=== PATIENT | female | born 1995 | race African-American/Black ===

== ENCOUNTER 2018-07-15 05:30 | Inpatient (IN) | payer OTHER ==
[2018-07-15] MEDS: Lactated Ringer's 1,000 ML IV SCH ×3 (07:30→11:20)
[2018-07-15] MEDS ORDERED: HYDROcodone/Acetaminophen 5/325 mg Tablet PO PRN ×3 (07:34→13:53)
[2018-07-15] MEDS ORDERED: Misoprostol 200 MCG TAB PR PRN (07:34)
[2018-07-15] MEDS ORDERED: Methylergonovine 0.2 MG/ML VIAL IM PRN (07:34)
[2018-07-15] MEDS ORDERED: NS w/ Oxytocin 10 units 500 ML IV SCH ×2 (07:34)
[2018-07-15] MEDS ORDERED: Carboprost 250 MCG/ML AMP IM PRN (07:34)
[2018-07-15] MEDS ORDERED: Ondansetron PF 4 MG/2 ML Vial IVP PRN ×2 (07:34→13:53)
[2018-07-15] MEDS ORDERED: Diphenoxylate HCl/Atropine Tablet PO PRN (07:34)
[2018-07-15] MEDS ORDERED: Ibuprofen 800 MG TAB PO PRN (07:34)
[2018-07-15] MEDS ORDERED: Lidocaine 1% (PF) 30 ML VIAL SC PRN (07:34)
[2018-07-15] MEDS ORDERED: NS / Oxytocin 40 units/1000ml 1,000 ML IV PRN (07:34)
[2018-07-15] MEDS ORDERED: Butorphanol Tartrate 1 MG/ML VIAL SLOW IVP PRN (07:34)
[2018-07-15 07:47] VITALS: BMI 23.0
[2018-07-15] MEDS ORDERED: Penicillin G Potassium 5 MILL.UNITS in Sodium Chloride 0.9% 100 ML IVPB SCH (08:00)
[2018-07-15 08:14] LABS: Hemoglobin 11.8 g/dL (12.0-16.0); Mean Corpuscular HGB CONC 32.7 g/dL (32.0-36.0); Mean Corpuscular Hemoglobin 30.4 pg (27.0-31.0); Mean Corpuscular Volume 93.1 fL (78.0-98.0); Mean Platelet Volume 8.4 fL (7.4-10.4); Platelet Count 125 thou/uL (130-400); RBC Distribution Width 15.4 % (11.5-14.5); Red Blood Cell (RBC) Count 3.87 mill/uL (4.20-5.40); White Blood Cell (WBC) Count 7.5 thou/uL (4.8-10.8)
[2018-07-15 08:49] LABS: Hep B Surf Ag Non-Reactive S/CO (NonReactive)
[2018-07-15 08:56] LABS: Syphilis Antibody Nonreactive (Nonreactive); Syphilis Antibody Index 0.14 S/CO (<1.00 Non-Reactive)
[2018-07-15] MEDS ORDERED: Fentanyl 4 mcg/Bup 0.1% Cadd 100 ML ONE (09:19)
[2018-07-15] MEDS ORDERED: diphenhydrAMINE 50 MG/ML VIAL IVP PRN (09:51)
[2018-07-15] MEDS ORDERED: Eucerin (Mineral Oil/Petrolatum,White) 30 gm Jar TOP PRN (09:51)
[2018-07-15] MEDS ORDERED: Naloxone HCl 0.4 mg/ml Vial IVP PRN ×2 (09:51)
[2018-07-15] MEDS ORDERED: Acetaminophen 325 MG TAB PO PRN (09:51)
[2018-07-15] MEDS ORDERED: Lactated Ringer's 500 ML IV PRN (09:51)
[2018-07-15] MEDS ORDERED: ePHEDrine/0.9% NaCl/PF SYRINGE 50 mg/10 ml SLOW IVP PRN (09:51)
[2018-07-15] MEDS ORDERED: Communication Order-Pharmacy FS SCH (10:00)
[2018-07-15] MEDS ORDERED: Fentanyl 4 mcg/Bupivacaine 0.1% Cassette 100 ML EPIDURAL SCH ×2 (10:00)
[2018-07-15] MEDS ORDERED: Penicillin G 2.5 MILL.units 2.5 MILL.UNITS in Premix Bag 1 BAG IVPB SCH (12:00)
[2018-07-15] MEDS ORDERED: Bisacodyl 10 MG SUPP PR PRN (13:53)
[2018-07-15] MEDS ORDERED: diphenhydrAMINE 25 MG CAP PO PRN (13:53)
[2018-07-15] MEDS ORDERED: Milk Of Magnesia 30 ML UDCUP PO PRN (13:53)
[2018-07-15] MEDS ORDERED: Benzocaine/Menthol 20-0.5% 60 ML CAN TOP PRN (13:53)
[2018-07-15] MEDS ORDERED: NS / Oxytocin 40 units/1000ml 1,000 ML IV SCH (13:53)
[2018-07-15] MEDS: Ibuprofen 800 MG TAB PO SCH ×2 (14:43→21:48)
[2018-07-15] MEDS: Ferrous Sulfate 325 MG TAB PO SCH (17:35)
[2018-07-15] MEDS: Docusate Calcium (SURFAK) 240 MG CAP PO SCH (21:48)
[2018-07-16 05:58] LABS: Hemoglobin 11.9 g/dL (12.0-16.0); Mean Corpuscular HGB CONC 32.7 g/dL (32.0-36.0); Mean Corpuscular Hemoglobin 31.2 pg (27.0-31.0); Mean Corpuscular Volume 95.5 fL (78.0-98.0); Mean Platelet Volume 8.4 fL (7.4-10.4); Platelet Count 127 thou/uL (130-400); RBC Distribution Width 15.4 % (11.5-14.5); Red Blood Cell (RBC) Count 3.82 mill/uL (4.20-5.40); White Blood Cell (WBC) Count 9.8 thou/uL (4.8-10.8)
[2018-07-16] MEDS: Ibuprofen 800 MG TAB PO SCH ×2 (06:33→14:10)
[2018-07-16] MEDS ORDERED: Prenatal Vitamin 1 TAB PO SCH (09:00)
[2018-07-16] MEDS: Docusate Calcium (SURFAK) 240 MG CAP PO SCH (09:09)
[2018-07-16] MEDS: Ferrous Sulfate 325 MG TAB PO SCH (09:09)
[2018-07-16 12:03] VITALS: BP 109/65; TEMP 98
== END 2018-07-16 15:00 | disposition home or self-care (01) | DRG 807 ==
LOC: L&D 06:22 → 3SW 14:47
PROVIDERS: ADMIT Family Medicine; ATTEND Family Medicine
PROC: 10E0XZZ Delivery of Products of Conception, External Approach (ICD-10-PCS; principal; 2018-07-15)
PROC: 0UQMXZZ Repair Vulva, External Approach (ICD-10-PCS; 2018-07-15)
PROC: 10907ZC Drainage of Amniotic Fluid, Therapeutic from Products of Conception, Via Natural or Artificial Opening (ICD-10-PCS; 2018-07-15)
PROC: 3E033VJ Introduction of Other Hormone into Peripheral Vein, Percutaneous Approach (ICD-10-PCS; 2018-07-15)
DX: O70.0 First degree perineal laceration during delivery (principal); Z37.0 Single live birth; Z3A.39 39 weeks gestation of pregnancy
CPT/HCPCS: 36415; 51702; 85027; 86780; 86850; 86900; 86901; 87340; J2001